=== PATIENT | male | born 1990 | race African-American/Black ===

== ENCOUNTER 2016-11-06 14:21 | Emergency (ER) | payer MEDICAID ==
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
[2016-11-06 14:41] VITALS: RESP 20; TEMP 98.2
[2016-11-06 17:01] VITALS: BP 145/72; PULSE 83; O2SAT 97
== END 2016-11-06 17:02 | disposition home or self-care (01) ==
LOC: EDBD 14:21
DX: R56.9 Unspecified convulsions (principal)
CPT/HCPCS: 82947-QW